=== PATIENT | female | born 1975 | race African-American/Black ===

== ENCOUNTER 2018-07-23 04:02 | Emergency (ER) | payer OTHER ==
[2018-07-23 04:12] VITALS: BMI 28.4
--- NOTE | 2018-07-23 04:34 | PDOC ---
History of Present Illness - General Chief Complaint: Headache Stated Complaint: HEADACHE - History of Present Illness Initial Comments: The pt is a 42F w/ a history of headaches and HTN who presents for evaluation of a CESPEDES. She reports 3-4 days of an intermittent, worsening, frontal/periorbital , b/l throbbing CESPEDES that is typical of her headaches. She endorses associated L sided, sharp, intermittent, non-exertional, non-radiating chest pain that is also typically associated with her headaches. She endorses intermittent blurry vision and dizziness which is also typical with her headaches. Endorses photophobia and phonophobia She has tried Ibuprofen with minimal relief. Denies fevers/chills, SOB, N/V/C/D, abdominal pain, dysuria, hematuria She reports being non-compliant with her HTN medication as she is worried about the potential side effects of BP meds. 07/23/18 06:44 Past History - Past Medical History Allergies/Adverse Reactions: Allergies Allergy/AdvReac Type Severity Reaction Status Date / Time No Known Allergies Allergy Verified 07/23/18 05:01 Home Medications: Ambulatory Orders Amlodipine Besylate 10 mg PO DAILY 07/23/18 - Suicide/Smoking/Psychosocial Hx Smoking History: Never smoked Have you smoked in the past 12 months: No Information on smoking cessation initiated: No Hx Alcohol Use: No Drug/Substance Use Hx: No Review of Systems - Review of Systems Able to Perform ROS?: Yes Comments:: GENERAL/CONSTITUTIONAL: No fever or chills. No weakness HEAD, EYES, EARS, NOSE AND THROAT: No ear pain or discharge. No sore throat CARDIOVASCULAR: No shortness of breath RESPIRATORY: Denies cough, hemoptysis GASTROINTESTINAL: No nausea, vomiting, diarrhea or constipation GENITOURINARY: No dysuria, frequency, or change in urination MUSCULOSKELETAL: No joint or muscle swelling or pain. No neck or back pain SKIN: No rash NEUROLOGIC: No vertigo, loss of consciousness, or change in strength ENDOCRINE: No increased thirst. No abnormal weight change HEMATOLOGIC/LYMPHATIC: No anemia, easy bleeding, or history of blood clots ALLERGIC/IMMUNOLOGIC: No hives or skin allergy 07/23/18 04:33 Is the patient limited Lithuanian proficient: No *Physical Exam - Vital Signs Last Vital Signs Temp Pulse Resp BP Pulse Ox 97.4 F L 72 18 168/118 H 98 07/23/18 04:11 07/23/18 04:11 07/23/18 04:11 07/23/18 04:11 07/23/18 04:11 - Physical Exam Comments: GENERAL: Awake, alert, and oriented to person/place/time, in no acute distress HEAD: No signs of trauma, normocephalic, atraumatic EYES: PERRLA, EOMI, sclera anicteric, conjunctiva clear ENT: Hearing grossly normal, nares patent, oropharynx clear without exudates. Moist mucosa LUNGS: No distress, speaks full sentences, clear to auscultation bilaterally HEART: Regular rate and rhythm, normal S1 and S2, no murmurs appreciated, peripheral pulses normal and equal bilaterally ABDOMEN: Soft, nontender, normoactive bowel sounds. No guarding, no rebound EXTREMITIES: Normal inspection, Normal range of motion, no edema. No clubbing or cyanosis NEUROLOGICAL: Cranial nerves II through XII grossly intact. Normal speech, normal gait, no focal sensorimotor deficits SKIN: Warm, Dry 07/23/18 04:33 ED Treatment Course - LABORATORY CBC & Chemistry Diagram: 07/23/18 05:10 07/23/18 05:10
[2018-07-23] MEDS ORDERED: ACETAMINOPHEN 1000 MG/100 ML VIAL (NON FORMULARY) IVPB ONE (05:02)
[2018-07-23] MEDS ORDERED: METOCLOPRAMIDE HCL INJECTION 10 MG/2 ML VIAL IVPB ONE (05:02)
[2018-07-23] MEDS ORDERED: amLODIPine BESYLATE 10 MG TABLET (FP) PO ONE (05:02)
[2018-07-23] MEDS ORDERED: amLODIPine BESYLATE 5 MG TABLET (FP) ONE (05:17)
[2018-07-23] MEDS ORDERED: ACETAMINOPHEN INJECTION 100 ML IVPB ONE (05:17)
[2018-07-23] MEDS ORDERED: METOCLOPRAMIDE HCL INJECTION 10 MG/2 ML VIAL ONE (05:17)
--- NOTE | 2018-07-23 05:17 | PDOC ---
Attending Attestation - Resident Resident Name: Frank Barrett - ED Attending Attestation I have performed the following: I have examined & evaluated the patient, The case was reviewed & discussed with the resident, I agree w/resident's findings & plan, Exceptions are as noted - HPI HPI: 07/23/18 07:51 42F pmh HTN, migraine CESPEDES here with several days of CESPEDES. CESPEDES is frontal, throbbing , slowly progressive, non-exertional. A/w her typical sequelae, states that she gets intermittent blurry vision, photo/phonphobia and L sided chest pain with her headaches. States that she has not been taking her HTN medications - Physicial Exam PE: 07/23/18 07:53 Agree with exam as documented by resident - Medical Decision Making 07/23/18 07:53 ?complex migraine with unusual features. Pt insists that her L sided chest pain is a typical associated symptom and it's quality and character are the same as it usually is with her migraine. In spite of that will risk stratify for ACS migranous tx, re-eval f/u labs, trop, cxr, ekg If symptomatic improvement and negative w/u dc home with pcp f/u
[2018-07-23 05:30] LABS: BASO % 0.8 % (0-2.0); EOS % 5.3 % (0-4.5); HEMOGLOBIN 11.9 GM/dL (10.7-15.3); LYMPH % 29.2 % (8-40); MCH 23.7 pg (25.7-33.7); MCHC 31.3 g/dl (32.0-36.0); MEAN CELL VOLUME 75.6 fl (80-96); MEAN PLT VOLUME 10.5 fl (7.5-11.1); MONO % 5.3 % (3.8-10.2); NEUT % 59.4 % (42.8-82.8); PLATELET COUNT 223 K/MM3 (134-434); RBC 5.03 M/mm3 (3.60-5.2); RDW 13.9 % (11.6-15.6); WHITE BLOOD COUNT 6.5 K/mm3 (4.0-10.0)
[2018-07-23 06:55] LABS: ALBUMIN 3.6 g/dl (3.4-5.0); BILIRUBIN,TOTAL 0.4 mg/dL (0.2-1); CALCIUM 9.4 mg/dL (8.5-10.1); CREATININE 0.7 mg/dL (0.55-1.3); TOT PROT 7.1 g/dl (6.4-8.2)
--- NOTE | 2018-07-23 07:42 | PDOC ---
*Physical Exam - Vital Signs Last Vital Signs Temp Pulse Resp BP Pulse Ox 97.5 F L 67 18 150/94 98 07/23/18 07:23 07/23/18 07:23 07/23/18 06:21 07/23/18 07:23 07/23/18 06:21 ED Treatment Course - LABORATORY CBC & Chemistry Diagram: 07/23/18 05:10 07/23/18 06:15 - ADDITIONAL ORDERS Additional order review: Laboratory Results 07/23/18 07/23/18 07/23/18 06:15 06:15 05:10 Sodium 139 Potassium 4.0 Chloride 108 H Carbon Dioxide 26 Anion Gap 6 L BUN 8 Creatinine 0.7 Est GFR (CKD-EPI)AfAm 122.13 Est GFR (CKD-EPI)NonAf 105.37 Random Glucose 114 H Calcium 9.4 Total Bilirubin 0.4 AST 17 ALT 21 Alkaline Phosphatase 104 Troponin I Total Protein 7.1 Albumin 3.6 Serum , Qual Negative Cancelled 07/23/18 05:10 Sodium Cancelled Potassium Cancelled Chloride Cancelled Carbon Dioxide Cancelled Anion Gap Cancelled BUN Cancelled Creatinine Cancelled Est GFR (CKD-EPI)AfAm Cancelled Est GFR (CKD-EPI)NonAf Cancelled Random Glucose Cancelled Calcium Cancelled Total Bilirubin Cancelled AST Cancelled ALT Cancelled Alkaline Phosphatase Cancelled Troponin I Cancelled Total Protein Cancelled Albumin Cancelled Serum , Qual 07/23/18 05:10 RBC 5.03 MCV 75.6 L MCHC 31.3 L RDW 13.9 MPV 10.5 Neutrophils % 59.4 Lymphocytes % 29.2 Monocytes % 5.3 Eosinophils % 5.3 H Basophils % 0.8 - Medications Given in the ED: ED Medications Discontinued Medications Generic Name Dose Route Start Last Admin Trade Name Freq PRN Reason Stop Dose Admin Acetaminophen 1,000 mg 07/23/18 05:02 07/23/18 05:37 Ofirmev Injection - IVPB 07/23/18 05:03 1,000 mg ONCE ONE Administration Amlodipine Besylate 10 mg 07/23/18 05:02 07/23/18 05:37 Norvasc - PO 07/23/18 05:03 10 mg ONCE ONE Administration Diphenhydramine HCl 25 mg 07/23/18 05:02 07/23/18 05:37 Benadryl Injection - IVPB 07/23/18 05:03 25 mg ONCE ONE Administration Metoclopramide HCl 10 mg 07/23/18 05:02 07/23/18 05:37 Reglan Injection - IVPB 07/23/18 05:03 10 mg ONCE ONE Administration Medical Decision Making - Medical Decision Making 07/23/18 07:42 Patient signed out by resident Dr. Barrett In short patient is a 42 year old woman with a history of CESPEDES and HTN who presents with 3-4 days of intermittent periorbital throbbing CESPEDES and complianed of L sided shartp chest pain that is typical of her headaches. Noncompliant with amlodipine Overngiht she recieved, Norvasc,Tylenol, Reglan and Benadryl with relief on reassessment this moring pendign repeat trop, ekg, cxr ED Course: 07/23/18 07:56 CXR: unremarkable trop negative ekg pending, repeat trop pending 07/23/18 09:31 EKG noirmal sinus at [address] elevation in V2, in non conitguous leads, T wave inversion in lead III will contact PCP with ekg and lab test results patient states she had migraines about once a month and manages them with advil She was suppsoed to be taking amlodipine 10 mg daily 07/23/18 09:35 Discussed case with PCP Kaushik Lacey who was informed of the patient's EKG and lab results He would like to follow patient outpatient and will schedule cardiology follow up and stress test outpatient. Patient reassessed and feels improved. Planfor discharge *DC/Admit/Observation/Transfer Diagnosis at time of Disposition: Migraine, Chest pain - Discharge Dispostion Disposition: HOME Condition at time of disposition: Fair Decision to Admit order: No - Referrals Referrals: Gibran Augustin MD [Staff Physician] - [facility] [place]] - Patient Instructions Printed Discharge Instructions: DI for Headache, DI for Chest Pain Additional Instructions: You were seen in the ED for complaints of headache and chest pain typical of your normal migraines. In the ED you were evaluated with labwork and imaging. Your results were largely unremarkable. There does not appear to be an acute need for immediate hospitalization. Your Primary Care Physician was made aware of your visit to the ED and it is advised that you follow up with your PCP within 1 week with further Cardiology follow up. You were given a referral to [facility]iology and [facility] Medicine Clinic if you are unable to follow up with your Family Doctor. Return to the ED immediately if you experience worsening headache, chest pain, shortness of breath, nausea, vomiting, fever, lightheadedness or loss of consciousness. - Post Discharge Activity
[2018-07-23 08:03] VITALS: BP 153/96; PULSE 61
[2018-07-23 09:04] VITALS: TEMP 98.2
--- NOTE | 2018-07-23 10:05 | PDOC ---
*Physical Exam - Vital Signs Last Vital Signs Temp Pulse Resp BP Pulse Ox 98.2 F 61 18 153/96 99 07/23/18 07:30 07/23/18 08:02 07/23/18 08:02 07/23/18 08:02 07/23/18 08:02 - Physical Exam General Appearance: Yes: Nourished Neck: positive: Trachea midline Respiratory/Chest: positive: Lungs Clear, Normal Breath Sounds Cardiovascular: positive: Regular Rhythm, Regular Rate, S1, S2 Musculoskeletal: positive: Normal Inspection Integumentary: positive: Normal Color, Dry, Warm ED Treatment Course - LABORATORY CBC & Chemistry Diagram: 07/23/18 05:10 07/23/18 06:15 - ADDITIONAL ORDERS Additional order review: Laboratory Results 07/23/18 07/23/18 07/23/18 08:35 06:15 06:15 Sodium 139 Potassium 4.0 Chloride 108 H Carbon Dioxide 26 Anion Gap 6 L BUN 8 Creatinine 0.7 Est GFR (CKD-EPI)AfAm 122.13 Est GFR (CKD-EPI)NonAf 105.37 Random Glucose 114 H Calcium 9.4 Total Bilirubin 0.4 AST 17 ALT 21 Alkaline Phosphatase 104 Troponin I < 0.02 0.02 Total Protein 7.1 Albumin 3.6 Serum , Qual Negative 07/23/18 07/23/18 05:10 05:10 Sodium Cancelled Potassium Cancelled Chloride Cancelled Carbon Dioxide Cancelled Anion Gap Cancelled BUN Cancelled Creatinine Cancelled Est GFR (CKD-EPI)AfAm Cancelled Est GFR (CKD-EPI)NonAf Cancelled Random Glucose Cancelled Calcium Cancelled Total Bilirubin Cancelled AST Cancelled ALT Cancelled Alkaline Phosphatase Cancelled Troponin I Cancelled Total Protein Cancelled Albumin Cancelled Serum , Qual Cancelled 07/23/18 05:10 RBC 5.03 MCV 75.6 L MCHC 31.3 L RDW 13.9 MPV 10.5 Neutrophils % 59.4 Lymphocytes % 29.2 Monocytes % 5.3 Eosinophils % 5.3 H Basophils % 0.8 - Medications Given in the ED: ED Medications Discontinued Medications Generic Name Dose Route Start Last Admin Trade Name Freq PRN Reason Stop Dose Admin Acetaminophen 1,000 mg 07/23/18 05:02 07/23/18 05:37 Ofirmev Injection - IVPB 07/23/18 05:03 1,000 mg ONCE ONE Administration Amlodipine Besylate 10 mg 07/23/18 05:02 07/23/18 05:37 Norvasc - PO 07/23/18 05:03 10 mg ONCE ONE Administration Diphenhydramine HCl 25 mg 07/23/18 05:02 07/23/18 05:37 Benadryl Injection - IVPB 07/23/18 05:03 25 mg ONCE ONE Administration Metoclopramide HCl 10 mg 07/23/18 05:02 07/23/18 05:37 Reglan Injection - IVPB 07/23/18 05:03 10 mg ONCE ONE Administration Medical Decision Making - Medical Decision Making 07/23/18 10:01 assumed care of pt at 7 am, signed out to me by Dr Paniagua, pending trop and cxr. 42 yo f h/o migraines, here with c/o chest pain, headache. h/o migraines, headache similar to prior migraines. also had chest pain. no current chest pain. pt state she was scheduled to have a stress test some time ago but wasn't able to comply with the test because she hadn't eaten prior and felt fatigued. was told to reschedule in 3 mo, but hadn't followed up. sees dr lacey. pt labs reviewed trop negative x 2. cxr mild cardiomegaly, otherwise negative. ekg noted for TWI III, flattened in AVF. no prior ekg. repeat ekg at 4 hours unchanged. case d/w Dr Lacey, will arrange fu with cardiology. pt dc home. reviewed followup plan with her at bedside. 07/23/18 10:04 *DC/Admit/Observation/Transfer Diagnosis at time of Disposition: Migraine, Chest pain - Discharge Dispostion Disposition: HOME Condition at time of disposition: Fair - Prescriptions Prescriptions: Amlodipine Besylate 10 mg PO DAILY 14 Days tablet Amlodipine Besylate 10 mg PO DAILY 14 Days #14 tablet - Referrals Referrals: [facility] [place] [facility] [place] [Provider Group] Gibran Augustin MD [Staff Physician] - - Patient Instructions Printed Discharge Instructions: DI for Headache, DI for Chest Pain Additional Instructions: You were seen in the ED for complaints of headache and chest pain typical of your normal migraines. In the ED you were evaluated with labwork and imaging. Your results were largely unremarkable. There does not appear to be an acute need for immediate hospitalization. Your Primary Care Physician was made aware of your visit to the ED and it is advised that you follow up with your PCP within 1 week with further Cardiology follow up. You were given a referral to Cardiology and [facility] Medicine Clinic if you are unable to follow up with your Family Doctor. Return to the ED immediately if you experience worsening headache, chest pain, shortness of breath, nausea, vomiting, fever, lightheadedness or loss of consciousness. - Post Discharge Activity
[2018-07-23] MEDS ORDERED: ACETAMINOPHEN 325 MG TABLET (FP) PO ONE (10:33)
[2018-07-23] MEDS ORDERED: ACETAMINOPHEN 325 MG TABLET (FP) ONE (10:34)
--- NOTE | 2018-07-23 13:28 | EKG ---
Test Reason : Blood Pressure : / mmHG Vent. Rate : 059 BPM Atrial Rate : 059 BPM P-R Int : 174 ms QRS Dur : 088 ms QT Int : 418 ms P-R-T Axes : 052 -30 007 degrees QTc Int : 413 ms SINUS BRADYCARDIA LEFT AXIS DEVIATION VOLTAGE CRITERIA FOR LEFT VENTRICULAR HYPERTROPHY ABNORMAL ECG WHEN COMPARED WITH ECG OF 23-JUL-2018 05:33, NO SIGNIFICANT CHANGE WAS FOUND Confirmed by NORBERTO COPELAND MD ([id number]) on 07/23/2018 1:27:47 PM Referred By: Confirmed By:NORBERTO COPELAND MD
--- NOTE | 2018-07-23 13:30 | EKG ---
Test Reason : Blood Pressure : / mmHG Vent. Rate : 074 BPM Atrial Rate : 074 BPM P-R Int : 172 ms QRS Dur : 090 ms QT Int : 390 ms P-R-T Axes : 057 -37 007 degrees QTc Int : 432 ms NORMAL SINUS RHYTHM POSSIBLE LEFT ATRIAL ENLARGEMENT LEFT AXIS DEVIATION LEFT VENTRICULAR HYPERTROPHY CANNOT RULE OUT SEPTAL INFARCT , AGE UNDETERMINED ABNORMAL ECG NO PREVIOUS ECGS AVAILABLE Confirmed by NORBERTO COPELAND MD ([id number]) on 07/23/2018 1:30:16 PM Referred By: Confirmed By:NORBERTO COPELAND MD
== END 2018-07-23 10:58 | disposition home or self-care (01) ==
LOC: JER 04:02
PROC: 3E033NZ Introduction of Analgesics, Hypnotics, Sedatives into Peripheral Vein, Percutaneous Approach (ICD-10-PCS; principal; 2018-07-23)
PROC: 3E033GC Introduction of Other Therapeutic Substance into Peripheral Vein, Percutaneous Approach (ICD-10-PCS; 2018-07-23)
DX: G43.909 Migraine, unspecified, not intractable, without status migrainosus (principal); R07.9 Chest pain, unspecified; I10 Essential (primary) hypertension
CPT/HCPCS: 36415; 71046-TC-FY; 80053; 84484; 84703; 85025; 93005; 93010; 99285-25; J0131